=== PATIENT | female | born 1960 | race Two or more races ===

== ENCOUNTER 2017-06-13 10:48 | Outpatient (CLI) | payer OTHER ==
[~2017-06-13 10:48] MED LIST: CALTRATE 600600 MG PO; CENTRUM COMPLE1 EACH PO; FIBER0.52 G PO; OSTERA TABLET1 EACH PO; PROTONIX20 MG PO; ULTRACET PO
== END 2017-06-13 11:07 | disposition home or self-care (01) ==
LOC: TOM 10:48
DX: G44.309 Post-traumatic headache, unspecified, not intractable (principal)

== ENCOUNTER 2017-06-13 10:50 | Outpatient (CLI) | payer OTHER | END 2017-06-13 11:09 | disposition home or self-care (01) | LOC: RAD 10:50 | DX: M12.561 Traumatic arthropathy, right knee (principal); M12.562 Traumatic arthropathy, left knee; M54.5 Low back pain ==

== ENCOUNTER 2019-03-09 19:49 | Emergency (ER) | payer BC ==
[~2019-03-09] VITALS: Ht 170.2 cm; Wt 72.6 kg
[2019-03-09] MEDS ORDERED: ATORVASTATIN CA40 MG (20:05)
== END 2019-03-09 22:52 | disposition home or self-care (01) ==
LOC: ER 19:49
DX: M94.0 Chondrocostal junction syndrome [Tietze] (principal)

== ENCOUNTER 2019-07-16 15:47 | Outpatient (CLI) | payer BC ==
[~2019-07-16 15:47] MED LIST changes: +ATORVASTATIN CA40 MG
== END 2019-07-16 15:50 | disposition home or self-care (01) ==
LOC: RAD 15:47
DX: R05 Cough (principal)

== ENCOUNTER 2019-07-16 16:25 | Outpatient (CLI) | payer BC | END 2019-07-16 18:00 | disposition home or self-care (01) | LOC: LAB 16:25 | DX: D83.8 Other common variable immunodeficiencies (principal); J43.2 Centrilobular emphysema ==

== ENCOUNTER 2021-03-11 17:21 | Outpatient (CLI) | payer BC ==
[2021-03-13] MEDS ORDERED: CEFDINIR300 MG PO (10:52)
== END 2021-03-11 17:30 | disposition home or self-care (01) ==
LOC: LAB 17:21
PROVIDERS: ATTEND Internal Medicine
DX: N39.0 Urinary tract infection, site not specified (principal); E03.8 Other specified hypothyroidism

== ENCOUNTER 2021-03-16 10:10 | Outpatient (CLI) | payer BC ==
[~2021-03-16 10:10] MED LIST changes: +CEFDINIR300 MG PO
== END 2021-03-16 10:19 | disposition home or self-care (01) ==
LOC: SONOGRAMA 10:10
PROVIDERS: ATTEND Internal Medicine
DX: E03.8 Other specified hypothyroidism (principal)

== ENCOUNTER 2021-05-26 13:19 | Emergency (ER) | payer BC ==
[~2021-05-26] VITALS: Ht 162.6 cm; Wt 63.5 kg
== END 2021-05-26 18:02 | disposition home or self-care (01) ==
LOC: ER 13:19
DX: B34.9 Viral infection, unspecified (principal)

== ENCOUNTER 2021-09-29 14:32 | Outpatient (CLI) | payer BC | END 2021-09-29 14:42 | disposition home or self-care (01) | LOC: MAMO-SONO 14:32 | PROVIDERS: ATTEND Obstetrics & Gynecology Gynecology | DX: N60.11 Diffuse cystic mastopathy of right breast (principal); N60.12 Diffuse cystic mastopathy of left breast ==

== ENCOUNTER 2021-11-16 09:29 | Outpatient (CLI) | payer BC | END 2021-11-16 09:35 | disposition home or self-care (01) | LOC: RAD 09:29 | PROVIDERS: ATTEND Internal Medicine Pulmonary Disease | DX: R05.3 Chronic cough (principal) ==

== ENCOUNTER 2022-09-27 09:41 | Outpatient (CLI) | payer BC | END 2022-09-27 09:42 | disposition home or self-care (01) | LOC: LAB 09:41 | PROVIDERS: ATTEND Surgery | DX: K57.32 Diverticulitis of large intestine without perforation or abscess without bleeding (principal) ==

== ENCOUNTER 2022-09-30 10:12 | Outpatient (CLI) | payer BC | END 2022-09-30 10:29 | disposition home or self-care (01) | LOC: TOM 10:12 | PROVIDERS: ATTEND Surgery | DX: K57.32 Diverticulitis of large intestine without perforation or abscess without bleeding (principal) ==

== ENCOUNTER 2022-10-14 12:02 | Outpatient (CLI) | payer BC | END 2022-10-14 12:13 | disposition home or self-care (01) | LOC: MAMO-SONO 12:02 | PROVIDERS: ATTEND Obstetrics & Gynecology Gynecology | DX: N60.11 Diffuse cystic mastopathy of right breast (principal); N60.12 Diffuse cystic mastopathy of left breast ==

== ENCOUNTER 2022-10-15 11:58 | Outpatient (CLI) | payer BC | END 2022-10-15 12:01 | disposition home or self-care (01) | LOC: LAB 11:58 | PROVIDERS: ATTEND Obstetrics & Gynecology Gynecology | DX: N30.10 Interstitial cystitis (chronic) without hematuria (principal) ==

== ENCOUNTER 2022-10-19 11:23 | Outpatient (CLI) | payer BC | END 2022-10-19 11:24 | disposition home or self-care (01) | LOC: LAB 11:23 | PROVIDERS: ATTEND Surgery | DX: K57.30 Diverticulosis of large intestine without perforation or abscess without bleeding (principal); I88.0 Nonspecific mesenteric lymphadenitis ==

== ENCOUNTER → 2023-12-02 09:51 | Outpatient (CLI) | payer BC ==
[2023-12-02 11:55] LABS: URINE APPEARANCE Cloudy; URINE BILIRRUBIN Negative (NEGATIVE); URINE BLOOD Trace; URINE COLOR Yellow; URINE GLUCOSE Negative (NEGATIVE); URINE LEUKOCYTE Small; URINE NITRATE Positive; URINE PROTEIN Negative (NEGATIVE)
[2023-12-02 11:59] LABS: URINE EPITHELIAL CELLS 2.6 uL (0.0-38.8); URINE RBC 17.4 uL (0.0-20.8)
[2023-12-02 12:01] LABS: URINE BACTERIA > 9821.2 uL (0.0-1933)
== END | disposition home or self-care (01) ==
LOC: LAB 09:51
PROVIDERS: ATTEND Internal Medicine
DX: N39.0 Urinary tract infection, site not specified (principal)

== ENCOUNTER 2024-06-18 08:18 | Outpatient (CLI) | payer OTHER ==
[2024-06-18 08:48] LABS: HEMATOCRIT 36.5 % (36.0-45.00); HEMOGLOBIN 12.5 g/dL (12.0-15.00); MEAN CELL VOLUME 80.8 fL (80.00-100.00); MEAN CORPUSCULAR HEMOGLOBIN 27.7 pg (27.00-32.0); MEAN CORPUSCULAR HGB CONC 34.3 g/dl (32.0-36.0); PLATELET COUNT 219 K/uL (150-450); RED BLOOD COUNT 4.52 M/uL (4.00-6.00); RED CELL DISTRIBUTION WIDTH 14.3 % (11.5-14.5)
[2024-06-18 09:03] LABS: PH,URINE 5.5 (5.0-8.0); URINE APPEARANCE Clear; URINE BILIRRUBIN Negative (NEGATIVE); URINE BLOOD Small; URINE COLOR Yellow; URINE GLUCOSE Negative (NEGATIVE); URINE KETONE Negative (NEGATIVE); URINE LEUKOCYTE Moderate; URINE NITRATE Positive; URINE PROTEIN Negative (NEGATIVE); URINE UROBILINOGEN 0.2 E.U./dl
[2024-06-18 09:08] LABS: URINE BACTERIA > 9821.5 uL (0.0-1933); URINE CAST 0.44 uL (0.0-1.40); URINE EPITHELIAL CELLS 12.3 uL (0.0-38.8); URINE RBC 16.3 uL (0.0-20.8); URINE WBC 52.2 uL (0.0-23.2)
[2024-06-18 09:51] LABS: ALBUMIN 3.7 gm/dL (3.4-5.0); BILIRUBIN TOTAL 2.6 mg/dL (0.3-1.2); CALCIUM 9.4 mg/dL (8.5-10.1); CHOL HDL RATIO 2.8 (0-5.0); CREATININE SERUM 0.83 mg/dL (0.55-1.02); FREE TRIODOTIRONINE 2.69 pg/ml (2.18-3.98); GFR 68.99; GLOBULINA 2.9 G/DL (2.4-3.5); POTASSIUM 4.49 mEq/L (3.5-5.1); T4 FREE 1.01 NG/ML (0.76-1.46); TOTAL PROTEIN 6.6 gm/dL (6.4-8.2); TSH 3.62 uIU/mL (0.358-3.74)
== END 2024-06-18 08:24 | disposition home or self-care (01) ==
LOC: LAB 08:18
PROVIDERS: ATTEND Internal Medicine
DX: E03.9 Hypothyroidism, unspecified (principal); E11.21 Type 2 diabetes mellitus with diabetic nephropathy; N39.9 Disorder of urinary system, unspecified; E78.2 Mixed hyperlipidemia; E11.65 Type 2 diabetes mellitus with hyperglycemia; Z12.11 Encounter for screening for malignant neoplasm of colon; D64.9 Anemia, unspecified; D68.8 Other specified coagulation defects; M32.10 Systemic lupus erythematosus, organ or system involvement unspecified; K75.81 Nonalcoholic steatohepatitis (NASH); N25.81 Secondary hyperparathyroidism of renal origin; N39.0 Urinary tract infection, site not specified; E55.9 Vitamin D deficiency, unspecified

== ENCOUNTER 2024-06-19 16:42 | Outpatient (CLI) | payer OTHER ==
[2024-06-19 17:02] LABS: ob NEGATIVE (NEGATIVE)
== END 2024-06-19 23:00 | disposition home or self-care (01) ==
LOC: LAB 16:42
PROVIDERS: ATTEND Internal Medicine
DX: E03.9 Hypothyroidism, unspecified (principal); E11.21 Type 2 diabetes mellitus with diabetic nephropathy; N39.9 Disorder of urinary system, unspecified; E78.2 Mixed hyperlipidemia; E11.65 Type 2 diabetes mellitus with hyperglycemia; Z12.11 Encounter for screening for malignant neoplasm of colon; D64.9 Anemia, unspecified; E55.9 Vitamin D deficiency, unspecified

== ENCOUNTER 2024-06-26 08:44 | Outpatient (CLI) | payer OTHER | END 2024-06-26 08:55 | disposition home or self-care (01) | LOC: MRI 08:44 | PROVIDERS: ATTEND Psychiatry & Neurology Clinical Neurophysiology | DX: G50.0 Trigeminal neuralgia (principal); G35 Multiple sclerosis | CPT/HCPCS: 70553; Q9965; 70552 ==

== ENCOUNTER 2024-07-26 09:08 | Outpatient (CLI) | payer OTHER | END 2024-07-26 09:17 | disposition home or self-care (01) | LOC: SONOGRAMA 09:08 | PROVIDERS: ATTEND Internal Medicine | DX: E03.9 Hypothyroidism, unspecified (principal) ==

== ENCOUNTER 2024-07-26 09:46 | Outpatient (CLI) | payer OTHER | END 2024-07-26 09:47 | disposition home or self-care (01) | LOC: LAB 09:46 | PROVIDERS: ATTEND Internal Medicine | DX: N39.0 Urinary tract infection, site not specified (principal) ==

== ENCOUNTER 2024-08-06 11:33 | Outpatient (CLI) | payer OTHER | END 2024-08-06 11:34 | disposition home or self-care (01) | LOC: MAMO-SONO 11:33 | PROVIDERS: ATTEND Obstetrics & Gynecology Gynecology | DX: N60.11 Diffuse cystic mastopathy of right breast (principal); N60.12 Diffuse cystic mastopathy of left breast; Z12.31 Encounter for screening mammogram for malignant neoplasm of breast ==

== ENCOUNTER 2025-02-07 10:07 | Outpatient (CLI) | payer OTHER ==
[2025-02-07 10:31] LABS: URINE APPEARANCE Clear; URINE BILIRRUBIN Negative (NEGATIVE); URINE BLOOD Small; URINE COLOR Yellow; URINE GLUCOSE Negative (NEGATIVE); URINE KETONE Negative (NEGATIVE); URINE LEUKOCYTE Small; URINE NITRATE Positive; URINE PROTEIN Negative (NEGATIVE); URINE UROBILINOGEN 0.2 E.U./dl
[2025-02-07 10:33] LABS: URINE EPITHELIAL CELLS 3.3 uL (0.0-38.8); URINE RBC 13.7 uL (0.0-20.8); URINE WBC 60.4 uL (0.0-23.2)
[2025-02-07 11:10] LABS: URINE BACTERIA > 9821.5 uL (0.0-1933); URINE CAST 0.29 uL (0.0-1.40)
== END 2025-02-07 10:08 | disposition home or self-care (01) ==
LOC: LAB 10:07
DX: N34.2 Other urethritis (principal)

== ENCOUNTER 2025-02-13 09:49 | Outpatient (CLI) | payer OTHER | END 2025-02-13 10:09 | disposition home or self-care (01) | LOC: MRI 09:49 | PROVIDERS: ATTEND Internal Medicine | DX: M54.50 Low back pain, unspecified (principal) | CPT/HCPCS: 72148 ==

== ENCOUNTER 2025-05-16 10:51 | Emergency (ER) | payer OTHER ==
[~2025-05-16] VITALS: Ht 162.6 cm; Wt 61.7 kg
[2025-05-16] MEDS ORDERED: NIFEDIPINE 30 MG TAB.SA.OSM PO ONE (14:00)
[2025-05-16] MEDS ORDERED: NIFEDIPINE 10 MG CAPSULE PO ONE (15:17)
[2025-05-16] MEDS ORDERED: AMLODIPINE BESYLATE 2.5 MG TABLET PO ONE (18:15)
[2025-05-16 20:40] LABS: BASO % 0.6 % (0.1-1.2); EOS # 0.07 (0.04-0.54); EOS % 1.1 % (0.7-7.0); LYMPH # 1.55 (1.18-3.74); LYMPH % 24.8 % (19.3-53.1); MEAN PLATELET VOLUME 9.40 fl (9.4-12.4); MONO # 0.44 (0.24-0.82); MONO % 7.0 % (4.7-12.5); NEUT # 4.15 (1.56-6.13); NEUT % 66.3 % (34.0-71.1); RED CELL DISTRIBUTION WIDTH 13.6 % (11.6-14.4)
[2025-05-16 21:34] LABS: ALT/SGPT 70.0 U/L (12-78); AST/SGOT 39.0 U/L (15-37); BILIRUBIN TOTAL 2.48 mg/dL (0.3-1.2); BUN CREA RATIO 14.0 (7.0-25.0); CREATININE SERUM 0.83 mg/dL (0.55-1.02); GFR 68.78; GLOBULINA 3.4 G/DL (2.4-3.5); GLUCOSE FASTING 126.0 mg/dL (65-100); OSMOLALITY SERUM 283.0 MOSM/KG (275-295); PHOSPHOKINASE CREATININE 76.0 U/L (26-192)
[2025-05-16] MEDS ORDERED: PLAVIX75 MG PO (22:23)
== END 2025-05-16 22:30 | disposition home or self-care (01) ==
LOC: ER 10:52
PROVIDERS: General Practice
DX: I73.00 Raynaud's syndrome without gangrene (principal); I65.8 Occlusion and stenosis of other precerebral arteries; K57.30 Diverticulosis of large intestine without perforation or abscess without bleeding; E78.00 Pure hypercholesterolemia, unspecified